=== PATIENT | female | born 1995 | race American Indian/Alaskan Native ===

== ENCOUNTER 2018-12-24 14:38 | Emergency (ER) | payer OTHER ==
[~2018-12-24] VITALS: Ht 152.4 cm; Wt 62.6 kg
[2018-12-24] MEDS ORDERED: PRENATAL + DHA1 EAC1 PO (15:06)
[2018-12-24] MEDS ORDERED: ONDANSETRON ODT4 MG PO (15:07)
== END 2018-12-24 19:11 | disposition home or self-care (01) ==
LOC: ER 14:38
DX: O20.0 Threatened abortion (principal)

== ENCOUNTER 2019-05-02 15:00 | Outpatient (CLI) | payer OTHER ==
[~2019-05-02 15:00] MED LIST: ONDANSETRON ODT4 MG PO; PRENATAL + DHA1 EAC1 PO
== END 2019-05-02 18:03 | disposition home or self-care (01) ==
LOC: PRENATAL 15:00 → OBS/DEL 15:00
DX: O98.813 Other maternal infectious and parasitic diseases complicating pregnancy, third trimester (principal); B37.49 Other urogenital candidiasis; Z34.83 Encounter for supervision of other normal pregnancy, third trimester

== ENCOUNTER 2019-05-20 11:16 | Outpatient (CLI) | payer OTHER | END 2019-05-21 11:50 | disposition home or self-care (01) | LOC: OBS/DEL 11:16 | DX: O98.813 Other maternal infectious and parasitic diseases complicating pregnancy, third trimester (principal); B37.89 Other sites of candidiasis; Z34.03 Encounter for supervision of normal first pregnancy, third trimester ==

== ENCOUNTER 2019-05-31 09:05 | Outpatient (CLI) | payer OTHER | END 2019-05-31 20:10 | disposition home or self-care (01) | LOC: OBS/DEL 09:05 | DX: O26.893 Other specified pregnancy related conditions, third trimester (principal); M54.5 Low back pain; R10.2 Pelvic and perineal pain; Z34.03 Encounter for supervision of normal first pregnancy, third trimester ==

== ENCOUNTER 2019-06-19 12:10 | Inpatient (IN) | payer OTHER ==
[~2019-06-19] VITALS: Ht 152.4 cm; Wt 3.6 kg
[2019-06-25] MEDS ORDERED: PRENATAL + DHA1 EAC1 (16:18)
== END 2019-06-29 11:45 | disposition home or self-care (01) | DRG 788 ==
LOC: OB/GYN 06-25 15:15 → O/R 06-27 05:55 → OB/GYN 06-27 14:02
PROVIDERS: ADMIT Obstetrics & Gynecology
PROC: 4A1HXCZ Monitoring of Products of Conception, Cardiac Rate, External Approach (ICD-10-PCS; 2019-06-27)
PROC: 10D00Z1 Extraction of Products of Conception, Low, Open Approach (ICD-10-PCS; principal; 2019-06-27 16:30)
DX: O82 Encounter for cesarean delivery without indication (principal); Z3A.39 39 weeks gestation of pregnancy; Z37.0 Single live birth

== ENCOUNTER 2020-08-13 17:05 | Inpatient (IN) | payer OTHER ==
[~2020-08-13] VITALS: Ht 152.4 cm; Wt 78.0 kg
[~2020-08-13 17:05] MED LIST changes: +PRENATAL + DHA1 EAC1
[2020-08-13] MEDS ORDERED: HIERRO (19:30)
== END 2020-08-17 11:25 | disposition home or self-care (01) | DRG 833 ==
LOC: OBS/DEL 17:05 → OB/GYN 08-14 09:22 → LDR 08-14 09:22 → OB/GYN 08-14 15:12
PROVIDERS: ADMIT Obstetrics & Gynecology; ATTEND Obstetrics & Gynecology
PROC: 4A0HXFZ Measurement of Products of Conception, Cardiac Rhythm, External Approach (ICD-10-PCS; principal; 2020-08-14)
DX: O23.43 Unspecified infection of urinary tract in pregnancy, third trimester (principal); O99.613 Diseases of the digestive system complicating pregnancy, third trimester; Z3A.34 34 weeks gestation of pregnancy; Z20.828 Contact with and (suspected) exposure to other viral communicable diseases

== ENCOUNTER 2020-09-12 12:00 | Inpatient (IN) | payer OTHER ==
[~2020-09-12] VITALS: Ht 152.4 cm; Wt 3.6 kg
[~2020-09-12 12:00] MED LIST changes: +HIERRO
[2020-09-17] MEDS ORDERED: IRON236 MG (08:04)
== END 2020-09-20 14:20 | disposition home or self-care (01) | DRG 785 ==
LOC: O/R 09-17 07:54 → OB/GYN 09-17 08:30
PROVIDERS: ADMIT Obstetrics & Gynecology; ATTEND Obstetrics & Gynecology
PROC: 0UB70ZZ Excision of Bilateral Fallopian Tubes, Open Approach (ICD-10-PCS; 2020-09-17)
PROC: 4A1HXFZ Monitoring of Products of Conception, Cardiac Rhythm, External Approach (ICD-10-PCS; 2020-09-17)
PROC: 10D00Z1 Extraction of Products of Conception, Low, Open Approach (ICD-10-PCS; principal; 2020-09-17 08:30)
DX: O34.211 Maternal care for low transverse scar from previous cesarean delivery (principal); Z30.2 Encounter for sterilization; Z3A.38 38 weeks gestation of pregnancy; Z37.0 Single live birth